=== PATIENT | male | born 1950 | race Caucasian/White ===

== ENCOUNTER 2016-04-09 14:43 | Inpatient (IN) | payer MEDICARE, SELFPAY ==
[~2016-04-09] VITALS: Ht 177.8 cm; Wt 72.0 kg
--- NOTE | ~2016-04-09 | HP ---
ADMIT: 04/09/2016 RM/LOC: 532 [facility] MR#: [id number] [address] [address] [place] [id number] History and Physical SEX: M AGE: 65 : 1950 DATE OF SERVICE: CHIEF COMPLAINT: Acute confusional state. CLINICAL HISTORY: Shahriar Arias was admitted to the hospital with advanced renal cell carcinoma, metastatic to brain, status post neuro-reductive surgery, occipital lobe. He came in with increasing confusion, weight loss, dehydration, and generalized deterioration and had lost approximately 20-30 pounds somewhere over the last 6 weeks. He was quite confused, belligerent with family and came into the office and brought in by family. He was wearing his shirt backwards. He did not know what day it was. He was unsteady in gait and we admitted to the hospital. History is obtained largely from family and indicates that he has had some ongoing diarrhea, partly related to his chemotherapy has not been eating and when they take foods and medicines over to him, he is belligerent, uncooperative, and refuses to speak with them. They deny any history of known falls to their knowledge. They have not witnessed him cough, to have any bleeding diathesis. They know he has had intermittent diarrhea. His house was disheveled. PHYSICAL EXAMINATION: GENERAL: Physical examination reveals a white male, disoriented, confused with low blood pressure and again his shirt worn backwards unbeknownst to him. HEAD AND NECK: Otherwise unchanged with poor vision consistent with his occipital lobe disease. LUNGS: Clear with changes of COPD/emphysema. HEART: Regular. ABDOMEN: Benign. EXTREMITIES: Thin with bilateral interosseous muscle wasting of longstanding nature. He was quite unsteady in his gait, requiring the assistance of at least one. There was no evidence of any bruising to the head, neck, or other areas. IMPRESSION: 1. Diarrhea and dehydration. 2. Confusional state. 3. Metastatic renal cell carcinoma to brain, bone, and lung. ADMIT: 04/09/2016 RM/LOC: 532 [facility] MR#: [id number] [address] BLAISE ARIAS [address] [place] [address] History and Physical SEX: M AGE: 65 : 1950 4. Status post partial neurosurgical resection of brain lesions. 5. Poor visual acuity secondary to occipital lobe metastatic cancer. 6. Chronic obstructive pulmonary Disease. 7. Advanced degenerative arthritis, cervical spine with bilateral interosseous muscle wasting due to cervical spine degenerative radiculopathy. 8. Psoj-mi-vyvyzqgz renal insufficiency. 9. Profound weight loss. PLAN: He will be brought into the hospital for IV fluids, will undertake an MRI to rule out progression of his neurosurgical lesions and see what it is we can help him with. Overall prognosis is quite poor. Kiet Gaxiola MD/ [facility] JOB #: [id number] CC: Kiet Gaxiola MD, Attending Physician Kiet Gaxiola MD, Family Physician
[~2016-04-09 14:43] MED LIST: COLACE-DPS100 MG PO; DEXAMETHASONE4 MG PO; HYDROCODON-ACE1 EAC4 PO; KEPPRA DPS500 MG PO; LOPRESSOR DPS12.5 MG PO; NORVASC5 MG PO; PEPCID DPS20 MG PO; TENORETIC-50 DP1 TAB PO; THERMOTABS PO; [UNRECOGNIZED DRUG - OTHER] PO
[2016-04-14] MEDS ORDERED: LOPRESSOR DPS12.5 MG PO (16:30)
[2016-04-14] MEDS ORDERED: SEROQUEL25 MG PO (16:30)
--- NOTE | 2016-05-08 11:11 | CO ---
ADMIT: 04/09/2016 RM/LOC: 532 [facility] MR#: [id number] [address] BLAISE ARIAS [address] [place] [id number] Consultation SEX: M AGE: 65 : 1950 DATE OF CONSULTATION: 04/10/2016 ATTENDING PHYSICIAN: Kiet Gaxiola MD CONSULTING PHYSICIAN: Ash Lau MD REASON FOR CONSULTATION: Increased confusion and history of metastatic renal cell carcinoma. HISTORY OF PRESENT ILLNESS: This is a generally pleasant 65-year-old male, patient of my partner, Dr. Nik Lang. He has a history of metastatic renal cell carcinoma with known brain metastasis and most recently has been taking a combination of oral chemotherapy regimen of lenvatinib plus everolimus which began in December of 2015. Additionally, it is pertinent to mention that he had previous brain metastasis resection in November of 2015 removing two dominant masses and received postoperative radiation therapy to his brain. The patient was admitted yesterday for increasing confusion noted by family member as the patient does live at home. Obtaining history from the patient, he is somewhat unreliable as he does still appear to be a bit confused and less orientated than normal. Per review of the chart and discussion with nurses, there was also considerate and significant concern for dehydration. The patient denies any other unusual symptoms such as increasing fatigue, nausea, vomiting, abdominal pain, or new falls recently. REVIEW OF SYSTEMS: A complete review of systems was attempted, but due to the patient's mental status would be somewhat unreliable. Never the less, it was found to be negative, except for what was mentioned above in the HPI. PAST MEDICAL HISTORY: Hypertension, left nephrectomy in 2014, craniotomy with metastatic resection in November of 2015. MEDICATIONS: At home. 1. Amlodipine 5 mg daily. 2. Hydrocodone/acetaminophen 5/325 every 8 hours p.r.n. 3. Tenoretic 50/25 mg 1/2 tab daily. 4. Metoprolol 12.5 mg b.i.d. 5. Afinitor 5 mg daily. 6. Lenvima 18 mg daily. ALLERGIES: NO KNOWN MEDICAL ALLERGIES. SOCIAL HISTORY: The patient is currently disabled, not , lives alone. He is an [employer] who served in [place] and has one son who lives in [place]. Significant history for approximately 15 pack years, but quit in 2008. No significant recent alcohol intake. FAMILY HISTORY: Significant for colon cancer in his father as well as a ADMIT: 04/09/2016 RM/LOC: 532 [facility] MR#: [id number] [address] [address] [place] [address] Consultation SEX: M AGE: 65 : 1950 brother. His mother is still living. LABORATORY AND RADIOLOGY: On 04/10/2016, sodium 134, potassium 4.1, BUN 93, creatinine 1.1. Alkaline phosphatase 166, magnesium 3.0. WBC 2.0, hemoglobin 12.1, and platelets 65. MRI brain on 04/09, impression, left posterior parietal postoperative changes. Right occipital lobe postoperative changes with 2.2 cm lobulated enhancing area. Considerations include resolving hematoma; however, recurrent disease cannot be excluded. Comparatively, this is a decreased in size since prior exam on 12/25/2015. IMPRESSION AND RECOMMENDATIONS: A 65-year-old male with metastatic renal cell carcinoma admitted with confusion. 1. RCC. The patient has been showing a positive response to his oral regimen of chemotherapy pills with a March 16 scan showing decreased liver metastasis. The patient has had appropriate brain therapy from back in November including resection followed by radiation therapy and it would be unlikely for new lesions to crop up in the short time span although possible. Given the decrease in size of 2.2 cm resection cavity mass compared to previous, one would favor no progression in the brain to explain the current level of confusion and disorientation. We will continue to hold his oral chemotherapy regimen while inpatient and consider the optimal time to reinitiate as an outpatient during followup. 2. Confusion. The patient does have significantly elevated BUN level at 93 which is unusual for him. This may be related to dehydration and/or drug side effect. At this level one could seriously consider the uremia cause for his confusion and we should proceed with IV fluid hydration and supportive care to see if this does resolve over the next few days. I would not recommend dialysis at this time rather conservative management. Thank you for this interesting consultation. Please call with any further questions. Total time spent 60 minutes. Ash Lau MD/ [facility] JOB #: [id number] CC: Kiet Gaxiola MD, Attending Physician Kiet Gaxiola MD, Family Physician
--- NOTE | 2016-06-21 12:27 | DS ---
ADMIT: 04/09/2016 RM/LOC: 532 [facility] MR#: [id number] [address] BLAISE ARIAS [address] [place] [id number] Discharge Summary SEX: M AGE: 65 : 1950 ADMISSION DATE: 04/09/2016 DISCHARGE DATE: 04/13/2016 DISCHARGE DIAGNOSES: 1. Diarrhea and dehydration. 2. Confusional state. 3. Metastatic renal cell carcinoma to brain, bone, and lung. 4. Status post partial neurosurgical resection of brain lesions. 5. Poor visual acuity secondary to occipital lobe metastatic cancer. 6. Chronic obstructive pulmonary Disease. 7. Advanced degenerative arthritis, cervical spine with bilateral interosseous muscle wasting due to cervical spine degenerative radiculopathy. 8. Nfvy-gm-fxlibfgz renal insufficiency. 9. Profound weight loss. 10.Hypokalemia. 11.Hypophosphatemia. 12.Hypoalbuminemia. 13.Status post left posterior parietal partial tumor resection. 14.2.2 cm lobulated enhancing right occipital lobe lesion with possible recurrent renal cell carcinoma. 15.EKG was sinus rhythm and poor R-wave progression. HOSPITAL COURSE: The patient was brought in, given IV fluids, medicines were withheld and MRI undertaken suggesting recurrent disease in the right occipital lobe area of prior resection. Multiple electrolytes were replaced. His confusion responded to Seroquel. He began to eat and take liquids and ultimately was dismissed home more oriented, certainly more cooperative and tremendously better hydrated and with less dystaxia. He will follow up Oncology and myself in 1 week's time. He did not want to consider home health care but we recommended Meals on Wheels and home health care because of his reluctance to accept outside help from family members. Kiet Gaxiola MD/ [facility] JOB #: [id number] CC: Kiet Gaxiola MD, Attending Physician Kiet Gaxiola MD, Family Physician MD Nik Bolton MD Julie P Janky, MD
== END 2016-04-13 13:59 | disposition home health service (06) | DRG 640 ==
LOC: 5MS 14:43
PROVIDERS: ADMIT Internal Medicine
DX: E86.0 Dehydration (principal); D61.810 Antineoplastic chemotherapy induced pancytopenia; C79.31 Secondary malignant neoplasm of brain; C78.00 Secondary malignant neoplasm of unspecified lung; C78.7 Secondary malignant neoplasm of liver and intrahepatic bile duct; C64.9 Malignant neoplasm of unspecified kidney, except renal pelvis; E88.09 Other disorders of plasma-protein metabolism, not elsewhere classified; R44.3 Hallucinations, unspecified; R63.4 Abnormal weight loss; R19.7 Diarrhea, unspecified; R41.0 Disorientation, unspecified; H53.9 Unspecified visual disturbance; N19 Unspecified kidney failure; J44.9 Chronic obstructive pulmonary disease, unspecified; M50.30 Other cervical disc degeneration, unspecified cervical region; M54.12 Radiculopathy, cervical region; N28.9 Disorder of kidney and ureter, unspecified; E87.6 Hypokalemia; E83.39 Other disorders of phosphorus metabolism; M62.50 Muscle wasting and atrophy, not elsewhere classified, unspecified site; I10 Essential (primary) hypertension; Z87.891 Personal history of nicotine dependence

== ENCOUNTER → 2016-06-15 | Outpatient (CLI) | payer MEDICARE, SELFPAY ==
[~2016-06-15] MED LIST changes: +SEROQUEL25 MG PO
== END | disposition home or self-care (01) ==
LOC: PTH.S 08:23
DX: C64.2 Malignant neoplasm of left kidney, except renal pelvis (principal); C78.7 Secondary malignant neoplasm of liver and intrahepatic bile duct; C78.02 Secondary malignant neoplasm of left lung; C79.31 Secondary malignant neoplasm of brain; R91.8 Other nonspecific abnormal finding of lung field; K76.89 Other specified diseases of liver; Z90.5 Acquired absence of kidney